=== PATIENT | female | born 1930 | race Caucasian/White ===

== ENCOUNTER → 2016-06-21 | Outpatient (CLI) | payer OTHER, MEDICARE | LOC: FIMAGING 12:15 | DX: Z12.31 Encounter for screening mammogram for malignant neoplasm of breast (principal) | CPT/HCPCS: G0202 ==

== ENCOUNTER 2016-08-05 13:13 | Emergency (ER) | payer OTHER, MEDICARE ==
[2016-08-05 13:19] VITALS: RESP 18; O2SAT 95
--- NOTE | 2016-08-05 13:36 | EDPHY ---
HPI/HX/ROS/PE/MDM Narrative: CHIEF COMPLAINT: Right shoulder injury following fall HPI: This patient is an 85 y/o female complaining of right shoulder pain following a mechanical fall this afternoon. She is currently recovering from a hip replacement with Dr. Saab one month ago and tripped while walking with hiking poles on [facility]. She describes a clear trip and fall. She denies preceding dizziness, weakness, chest pain, shortness of breath, palpitations, or other associated symptoms. She reports striking her head but denies loss of consciousness, headache, midline neck or back pain, weakness, or paresthesias. She has a history of osteoarthritis with chronic joint pain. She denies anticoagulant use. REVIEW OF SYSTEMS: Aside from elements discussed in the HPI, a comprehensive 10- point review of systems was reviewed and is negative. PMH: Hypothyroidism, Hypertension, Osteopenia, L bundle branch block, scoliosis , hip replacement by Dr Saab Past medical records reviewed including admission 03/26/14 and prior ED visits. SOCIAL HISTORY: No tobacco use, minimal alcohol consumption, originally from the [place]. PHYSICAL EXAM: General:Patient is alert, in no acute distress. Head: 1cm laceration to right lateral head. ENT:Eyes are normal to inspection. Neck: Normal inspection. Full range of motion. Respiratory:No respiratory distress. Breath sounds normal bilaterally. Cardiovascular: Regular rate and rhythm. Strong peripheral pulses. Normal cap refill. Abdomen:The abdomen is nontender to palpation. There are no peritoneal signs. Back: Normal to inspection. No tenderness to palpation. Skin: Normal color. No rash. Warm and dry. Extremities: Tenderness to right proximal humerus. Range of motion limited by pain. Other extremities normal in appearance with baseline range of motion. Neuro: Oriented x3. Normal motor function. Normal sensory function. ED Course: This patient is an 85 y/o female present today with right shoulder pain following a mechanical fall earlier today. She has tenderness to her right proximal humerus. She is neurovascularly intact. Humeral x-ray shows slightly displaced proximal humerus fracture. I discussed these results with the patient. I recommended follow up with orthopedist in one week. She adamantly refused to see Dr. Saab again and requested a shoulder specialist. We have referred her to Dr. Goncalves. She will be discharged in a sling with a prescription for Hydrocodone. Specific return precautions discussed. She is comfortable with this plan. General Time Seen by Provider: 08/05/16 13:28 Initial Vital Signs: Initial Vital Signs Temperature (C) 36.7 C 08/05/16 13:16 Heart Rate 79 08/05/16 13:16 Respiratory Rate 18 08/05/16 13:16 Blood Pressure 179/71 H 08/05/16 13:16 O2 Sat (%) 95 08/05/16 13:16 O2 Delivery Mode Room Air Allergies/Adverse Reactions: No Known Allergies Allergy (Verified 08/05/16 13:19) Home Medications: Medication Instructions Recorded Cholecalciferol (Vitamin D3) 2,000 unit PO DAILY 03/26/14 [Vitamin D3] Herbals/Supplements -Info Only 1 ea PO DAILY 03/26/14 Levothyroxine [Synthroid 137 mcg 137 mcg PO DAILY06 03/26/14 (*)] [place]-3 Fatty Acids/Fish Oil 1 each PO DAILY 03/26/14 [[place] 3 1,000 mg Softgel] Valsartan [Diovan (*)] 80 mg PO DAILY@1800 03/26/14 Valsartan/Hctz [Diovan Hct 80/12.5 1 each PO DAILY 03/26/14 mg (*)] Acetaminophen [Tylenol 325mg (*)] 650 mg PO Q6HRS #0 tab 03/31/16 Aspirin [Aspirin 325 mg (*)] 325 mg PO DAILY #0 tab 03/31/16 Sennosides/Docusate Sodium 1 - 2 tab PO BID #0 tab 03/31/16 [Senokot-S] celeCOXIB [Celebrex (*)] 200 mg PO DAILY #20 cap 03/31/16 oxyCODONE IR [Oxycodone Ir (*)] 5 - 10 mg PO Q3HRS PRN #30 tab 03/31/16 Hydrocodone/APAP 5/325 [Bent 1 - 2 tab PO Q4H PRN #20 tab 08/05/16 5/325 (RX)] Departure - Departure Disposition: Home, Routine, Self-Care Clinical Impression: Proximal humeral fracture Qualifiers: Encounter type: initial encounter Fracture type: closed Fracture morphology: other fracture Fracture alignment: displaced Laterality: right Qualified Code(s) : S42.291A - Other displaced fracture of upper end of right humerus, initial encounter for closed fracture Condition: Good Instructions: Hydrocodone/Acetaminophen (By mouth), Arm Fracture in Adults (ED) , Proximal Humerus Fracture (ED) Additional Instructions: 1. Take Aleve or ibuprofen as directed on the packaging. 2. Take hydrocodone as prescribed for pain not controlled by ibuprofen or Aleve. 3. Follow up with cleaning specialist this week. We have referred you to Dr. Goncalves, who is a shoulder specialist. 4. Wear sling for comfort until follow-up with Dr. Goncalves. 5. You can try applying ice to sore areas if it gives you some relief. 6. Return to the ED for weakness or numbness in your arm and fingers, increased swelling or redness, or other worsening of condition. Referrals: Juan Alicea [Primary Care Provider] - As per Instructions Bhargav Goncalves MD [Medical Doctor] - As per Instructions Prescriptions: Hydrocodone/APAP 5/325 [Bent 5/325 (RX)] 1 - 2 tab PO Q4H PRN #20 tab PRN Reason: Pain, Moderate Report Scribed for: Antione Chow Report Scribed by: Ya Villeda Date of Report: 08/05/16 Time of Report: 13:36 Physician Review and Approval Statement: Portions of this note were transcribed by an ED scribe. I personally performed the history, physical exam, and medical decision making; and confirm the accuracy of the information in the transcribed note.
[2016-08-05 14:52] VITALS: BP 151/78; PULSE 87; TEMP 98.2
== END 2016-08-05 14:52 | disposition home or self-care (01) ==
DX: S42.291A Other displaced fracture of upper end of right humerus, initial encounter for closed fracture (principal); I10 Essential (primary) hypertension; Z79.82 Long term (current) use of aspirin; W18.39XA Other fall on same level, initial encounter
CPT/HCPCS: 73030; 99283; A4565

== ENCOUNTER 2016-08-06 03:33 | Observation (INO) | payer OTHER, MEDICARE ==
--- NOTE | 2016-08-06 03:57 | EDPHY ---
H & P Time Seen by Provider: 08/06/16 03:49 HPI/ROS: Chief Complaint: Right arm pain HPI: A 85-year-old woman who sustained a mechanical trip and fall yesterday afternoon sustaining a fracture to her proximal right humerus. Patient was sent home with oral hydrocodone and in a sling. Patient states that she is unable to adequately control her pain at home. She last took hydrocodone at 12: 30 p.m. this morning. She is worried about taking more than 1 at a time because she is afraid it will interact with her pacemaker. She also stating that she feels very anxious. She does not feel that she is able to go home. The sling was uncomfortable and she removed it. Denies any fevers or chills. No chest pain or shortness of breath. No nausea or vomiting. ROS: 10 point Review of Systems is negative except as noted in the HPI. PMH: Hypertension, osteopenia, left bundle-branch block, scoliosis, hip replacement, pacemaker placement Social History: No smoking, occasional alcohol, no recreational drug use Family History: non-contributory Physical Exam: Gen: Awake, Alert, uncomfortable appearing HEENT: Nose: no rhinorrhea Eyes: PERRLA, EOMI Mouth: Moist mucosa Neck: Supple, no JVD Chest: nontender, lungs clear to auscultation Heart: S1, S2 normal, no murmur Abd: Soft, non-tender, no guarding Back: no CVA tenderness, no midline tenderness Ext: no edema, proximal right arm tenderness and deformity consistent with proximal humerus fracture. Is not in a sling. There is significant ecchymosis. Is held in abduction. 2+ radial pulses. Cap refills less than 3 seconds. Skin: no rash Neuro: CN II-XII intact, Sensation grossly intact, Strength 5/5 in bilateral upper and lower extremities - Personal History Tetanus Vaccine Date: 10 years ago - Medical/Surgical History Hx Asthma: No Hx Chronic Respiratory Disease: No Hx Diabetes: No Hx Cardiac Disease: No Hx Renal Disease: No Hx Cirrhosis: No Hx Alcoholism: No Hx HIV/AIDS: No Hx Splenectomy or Spleen Trauma: No Other PMH: HTN, PARTIAL THYROIDECTOMY, CHOLECYSTECTOMY, ARTHRITIS, FUSION L4, L5 , PACEMAKER - Social History Smoking Status: Never smoked Constitutional: Initial Vital Signs Temperature (C) 36.6 C 08/06/16 03:56 Heart Rate 82 08/06/16 03:56 Respiratory Rate 16 08/06/16 03:56 Blood Pressure 161/63 H 08/06/16 03:56 O2 Sat (%) 92 08/06/16 03:56 O2 Delivery Mode Room Air O2 (L/minute) 2 Allergies/Adverse Reactions: No Known Allergies Allergy (Verified 08/06/16 03:55) Home Medications: Medication Instructions Recorded Herbals/Supplements -Info Only 1 ea PO DAILY 03/26/14 Levothyroxine [Synthroid 137 mcg 137 mcg PO DAILY06 03/26/14 (*)] [place]-3 Fatty Acids/Fish Oil 1 each PO BID 03/26/14 [[place] 3 1,000 mg Softgel] Valsartan [Diovan (*)] 80 mg PO DAILY@1800 03/26/14 Valsartan/Hctz [Diovan Hct 80/12.5 1 each PO DAILY 03/26/14 mg (*)] Acetaminophen [Tylenol 325mg (*)] 650 mg PO Q6HRS #0 tab 03/31/16 Hydrocodone/APAP 5/325 [[place] 1 - 2 tab PO Q4H PRN #20 tab 08/05/16 5/325 (RX)] Aspirin [Aspirin 81mg (*)] 81 mg PO DAILY 08/06/16 Naproxen Sodium [Aleve 220 MG (*)] 220 mg PO BID 08/06/16 Medical Decision Making ED Course/Re-evaluation: Patient presenting with proximal right humerus fracture. She is having her pain is adequately controlled with oral hydrocodone at home. She is afraid to take any more than this because it she is afraid it caused her to have a heart attack. I have tried to reassure her that there should be no problems with taking more pain medicine however she is afraid to do so. She has also been taking her arm out of the sling because it is uncomfortable. She has gotten 4 mg of morphine here with some minimal relief but is still afraid to go home. I will discuss with hospitalist regarding admission. - Data Points Medications Given: Discontinued Medications Sodium Chloride (Ns) 500 mls @ 3,000 mls/hr IV ONCE ONE Stop: 08/06/16 05:05 Last Admin: 08/06/16 05:12 Dose: 500 mls Morphine Sulfate (Morphine) 4 mg IVP ONCE ONE Stop: 08/06/16 03:57 Last Admin: 08/06/16 04:10 Dose: 4 mg Departure - Departure Disposition: [facility] In[facility] Acute Clinical Impression: Humerus fracture Condition: Fair
[2016-08-06] MEDS ORDERED: NS 500 ML IV ONE (04:56)
[2016-08-06 05:03] LABS: % IMMATURE GRANULYOCYTES 0.4 % (0.0-1.1); ABSOLUTE IMMATURE GRANULOCYTES 0.03 10^3/uL (0.00-0.10); ADD DIFF? NO; ADD MORPH? NO; ADD SCAN? NO; ATYPICAL LYMPHOCYTE FLAG 0 (0-99); FRAGMENT RBC FLAG 0 (0-99); HEMATOCRIT 32.9 % (38.0-47.0); HEMOGLOBIN 11.2 g/dL (12.6-16.3); LEFT SHIFT FLG 0 (0-99); LIPEMIA HEMOLYSIS FLAG 90 (0-99); MEAN CELL HEMOGLOBIN 31.9 pg (27.9-34.1); MEAN CELL VOLUME 93.7 fL (81.5-99.8); MEAN PLATELET VOLUME 11.1 fL (8.7-11.7); PLATELET CLUMPS FLAG 0 (0-99); PLATELET COUNT 185 10^3/uL (150-400); RED BLOOD CELL COUNT 3.51 10^6/uL (4.18-5.33); RED CELL DISTRIBUTION WIDTH 13.4 % (11.5-15.2)
[2016-08-06 05:11] LABS: ANION GAP 5 mEq/L (8-16); CALCIUM 8.7 mg/dL (8.5-10.4); CARBON DIOXIDE 25 mEq/l (22-31); CHLORIDE 96 mEq/L (97-110); CREATININE 0.9 mg/dL (0.6-1.0); GLOMERULAR FILTRATION RATE 59; GLUCOSE 114 mg/dL (70-100); POTASSIUM 3.8 mEq/L (3.5-5.2); SODIUM 126 mEq/L (134-144)
[2016-08-06] MEDS ORDERED: ONDANSETRON DISINTEGRATING 4 MG TAB PO PRN (05:21)
[2016-08-06] MEDS ORDERED: oxyCODONE IR 5 MG TAB PO PRN (05:21)
[2016-08-06] MEDS ORDERED: ACETAMINOPHEN 500 MG TAB PO PRN (05:21)
[2016-08-06] MEDS ORDERED: ONDANSETRON 4 MG/2 ML VIAL IVP PRN (05:21)
[2016-08-06] MEDS ORDERED: NS 1,000 ML IV SCH (05:30)
--- NOTE | 2016-08-06 05:31 | PDGENHP ---
History and Physical - Chief Complaint arm pain - History of Present Illness Patient is an 85 year old female with HTN, hypothyroidism, osteoarthritis, PPM who presents to the ED with increased R arm pain at the site of R humeral fracture. Patient was seen in the ED yesterday after a mechanical fall where she reports tripping on an uneven sidewalk, falling and landing on her R arm. She also reports grazing her R forehead on the sidewalk, denies loss of consciousness, remembers the entire event. She also denies any lightheadedness, chest pain, palpitations or shortness of breath associated with the fall. She immediately had intense pain to the R upper arm, so she was taken to the ED for further evaluation. X-ray revealed a nondisplaced R humeral head and greater tuberosity fracture. She was placed in a sling, given a prescription for Nimitz and discharged home. Patient had only taken the Nimitz that was given to her in the ED, stating she was afraid to take any at home due to fear/anxiety of oversedation, as she lives alone. The pain intensified throughout the day, she was unable to perform simple tasks around her home and felt the sling was uncomfortable so she removed it. She returned to the ED this evening with intense pain in her. She denies any recent fevers, chills, cough, congestion, nausea, vomiting or diarrhea, but does report generally decreased oral intake recently. On arrival to the ED, she was afebrile and hemodynamically stable, although in moderate amount of pain. She was given symptomatic treatment and was then admitted for further pain management. History Information - Allergies/Home Medication List Allergies/Adverse Reactions: No Known Allergies Allergy (Verified 08/06/16 03:55) Home Medications: Cholecalciferol (Vitamin D3) [Vitamin D3] 2,000 unit PO DAILY 03/26/14 [Last Taken 03/26/14 09:00] Herbals/Supplements -Info Only 1 ea PO DAILY 03/26/14 [Last Taken 2 Weeks Ago] Levothyroxine [Synthroid 137 mcg (*)] 137 mcg PO DAILY06 03/26/14 [Last Taken ] [place]-3 Fatty Acids/Fish Oil [[place] 3 1,000 mg Softgel] 1 each PO DAILY [Last Taken 1 Week Ago] Valsartan [Diovan (*)] 80 mg PO DAILY@1800 03/26/14 [Last Taken 03/30/16] Valsartan/Hctz [Diovan Hct 80/12.5 mg (*)] 1 each PO DAILY 03/26/14 [Last Taken 03/30/16] I have personally reviewed and updated: family history, medical history, social history, surgical history - Past Medical History Additional medical history: hypothyroidism. hypertension. PPM for symptomatic bradycardia. osteoarthritis - Surgical History Additional surgical history: L hip arthroplasty 03/2016 - Social History Smoking Status: Never smoked Alcohol Use: None Drug Use: None Additional social history: Patient lives alone, independent in ADLs, has children living nearby. [place], has been living in [place] since young adulthood. Review of Systems ROS: 10pt was reviewed & negative except for what was stated in HPI & below Physical Exam Temp Pulse Resp BP Pulse Ox 36.8 C 67 16 107/56 L 97 08/06/16 05:13 08/06/16 05:13 08/06/16 05:13 08/06/16 05:13 08/06/16 05:13 O2 (L/minute) 2 Constitutional: no apparent distress, appears nourished, not in pain Eyes: PERRL, anicteric sclera, EOMI Ears, Nose, Mouth, Throat: moist mucous membranes, hearing normal, ears appear normal, no oral mucosal ulcers Cardiovascular: regular rate and rhythym, no murmur, rub, or gallop, pulses symmetric bilaterally, No JVD, No edema Peripheral Pulses: 2+: dorsalis-pedis (R), dorsalis-pedis (L) Respiratory: no respiratory distress, no rales or rhonchi, clear to auscultation Gastrointestinal: normoactive bowel sounds, soft, non-tender abdomen, no palpable masses Genitourinary: no bladder fullness, no bladder tenderness Skin: warm, normal color, no fluctuance, no induration, abrasion (abrasion on R lateral orbit, mildly tender), No mottled Musculoskeletal: pain with ROM (of RUE; neurovascularly intact) Neurologic: AAOx3, sensation intact bilaterally, CN II-XII Intact, No weakness, No numbness, No facial droop Psychiatric: interacting appropriately, not anxious, not encephalopathic, thought process linear Lab Data & Imaging Review 08/06/16 04:50 08/06/16 04:50 WBC 7.93 10^3/uL (3.80-9.50) 08/06/16 04:50 RBC 3.51 10^6/uL (4.18-5.33) L 08/06/16 04:50 Hgb 11.2 g/dL (12.6-16.3) L 08/06/16 04:50 Hct 32.9 % (38.0-47.0) L 08/06/16 04:50 MCV 93.7 fL (81.5-99.8) 08/06/16 04:50 MCH 31.9 pg (27.9-34.1) 08/06/16 04:50 MCHC 34.0 g/dL (32.4-36.7) 08/06/16 04:50 RDW 13.4 % (11.5-15.2) 08/06/16 04:50 Plt Count 185 10^3/uL (150-400) 08/06/16 04:50 MPV 11.1 fL (8.7-11.7) 08/06/16 04:50 Neut % (Auto) 75.1 % (39.3-74.2) H 08/06/16 04:50 Lymph % (Auto) 15.0 % (15.0-45.0) 08/06/16 04:50 [place] % (Auto) 7.8 % (4.5-13.0) 08/06/16 04:50 Eos % (Auto) 1.3 % (0.6-7.6) 08/06/16 04:50 Baso % (Auto) 0.4 % (0.3-1.7) 08/06/16 04:50 Nucleat RBC Rel Count 0.0 % (0.0-0.2) 08/06/16 04:50 Absolute Neuts (auto) 5.96 10^3/uL (1.70-6.50) 08/06/16 04:50 Absolute Lymphs (auto) 1.19 10^3/uL (1.00-3.00) 08/06/16 04:50 Absolute Monos (auto) 0.62 10^3/uL (0.30-0.80) 08/06/16 04:50 Absolute Eos (auto) 0.10 10^3/uL (0.03-0.40) 08/06/16 04:50 Absolute Basos (auto) 0.03 10^3/uL (0.02-0.10) 08/06/16 04:50 Absolute Nucleated RBC 0.00 10^3/uL (0-0.01) 08/06/16 04:50 Immature Gran % 0.4 % (0.0-1.1) 08/06/16 04:50 Immature Gran # 0.03 10^3/uL (0.00-0.10) 08/06/16 04:50 Sodium 126 mEq/L (134-144) L 08/06/16 04:50 Potassium 3.8 mEq/L (3.5-5.2) 08/06/16 04:50 Chloride 96 mEq/L (97-110) L 08/06/16 04:50 Carbon Dioxide 25 mEq/l (22-31) 08/06/16 04:50 Anion Gap 5 mEq/L (8-16) L 08/06/16 04:50 BUN 20 mg/dL (7-23) 08/06/16 04:50 Creatinine 0.9 mg/dL (0.6-1.0) 08/06/16 04:50 Estimated GFR 59 08/06/16 04:50 Glucose 114 mg/dL (70-100) H 08/06/16 04:50 Calcium 8.7 mg/dL (8.5-10.4) 08/06/16 04:50 Visualized and Interpreted imaging results: Yes Interpretation: R shoulder x-ray: nondisplaced R humeral head and greater trochanger fracture Assessment & Plan Assessment: Patient is an 85 year old female with hypertension, hypothyroidism, osteoarthritis and PPM who presented to the ED after a mechanical fall that resulted in R humeral head fracture. Plan: # acute R humeral head fracture Patient returns to the ED with significant pain at the site of her acute fracture, limiting her ability to perform her ADLs at home. No indication for repeat imaging, arm was placed back into the sling and patient was admitted for adequate pain control. # fall Patient's description of the fall sounds to be mechanical in nature. However, labs due reveal hyponatremia, which may have contributed to her falling. Will also check UA. Will correct electrolyte abnormalities and obtain PT/OT evaluation. # hyponatremia Suspect hypovolemia, as patient describes a recent decrease in appetite. Will provide IV fluid hydration and repeat studies. # Hypothyroidism Check TSH, cont home synthroid. # hypertension BP stable on presentation. Will confirm and continue home meds. # dispo: admit to observation status for pain control # gen: regular diet DVT ppx: lovenox Full code
[2016-08-06] MEDS: ENOXAPARIN 40 MG/0.4 ML SYR SC SCH (08:12)
[2016-08-06 08:45] LABS: COLOR YELLOW; LEUKOCYTE ESTERASE,URINE NEGATIVE (NEGATIVE); NITRITE,URINE NEGATIVE (NEGATIVE)
--- NOTE | 2016-08-06 09:09 | CPEKG ---
Heart Rate: 74 RR Interval: 811 P-R Interval: 236 QRSD Interval: 142 QT Interval: 444 QTC Interval: 493 QRS [place]: -38 T Wave [place]: 139 EKG Severity - ABNORMAL ECG - EKG Impression: ATRIAL-PACED RHYTHM EKG Impression: LEFT BUNDLE BRANCH BLOCK Electronically Signed By: Silvio Vieira 07-Aug-2016 06:37:40
[2016-08-06] MEDS: NAPROXEN SODIUM 220 MG TAB PO SCH ×2 (10:33→20:13)
[2016-08-06] MEDS: LEVOTHYROXINE 137 MCG TAB PO SCH (10:34)
[2016-08-06] MEDS: VALSARTAN/HCTZ 80-12.5MG TAB PO SCH (10:34)
[2016-08-06] MEDS: HYDROCODONE/APAP 5/325 TAB PO PRN ×3 (11:22→20:12)
[2016-08-06] MEDS: ACETAMINOPHEN 325 MG TAB PO SCH ×2 (11:42→18:06)
--- NOTE | 2016-08-06 13:09 | PDCONSULT ---
Cell Inspector Note: Orthopedic Consult Note for [facility], Dr. Camron Andujar and Alex Elkins PA-C Sophia is a pleasant 85 yo female, patient states 08/05/16 she was walking [place] [address] as she has been since her recent hip surgery to keep in shape, and thinks she may have tripped over her left foot as she feels she drags this foot more than her right due to scoliosis hx. patient reports she fell forward onto her right arm and grazed her head and had immediate onset of pain in her right upper arm. Patient states she did not lose consiousness, and remembers everything. Patient went to the ED where she was found to have a non-displaced right humerus fracture, patient was placed in a sling and given pain meds and discharged home. However, patient reports that over the rest of the day she in increasing pain and unable to do her ADL's and didn't want to take pain meds as she worried about over sedating her self, so patient represented to ED and was subsequently admitted. Patient reports pain has been under control since being admitted, denies any numbness/tingling in right arm. Denies any fevers/chills, denies n/v/d/c. Denies cp/sob. MEDs Cholecalciferol (Vitamin D3) [Vitamin D3] 2,000 unit PO DAILY 03/26/14 [Last Taken 03/26/14 09:00] Herbals/Supplements -Info Only 1 ea PO DAILY 03/26/14 [Last Taken 2 Weeks Ago] Levothyroxine [Synthroid 137 mcg (*)] 137 mcg PO DAILY06 03/26/14 [Last Taken ] [place]-3 Fatty Acids/Fish Oil [[place] 3 1,000 mg Softgel] 1 each PO DAILY [Last Taken 1 Week Ago] Valsartan [Diovan (*)] 80 mg PO DAILY@1800 03/26/14 [Last Taken 03/30/16] Valsartan/Hctz [Diovan Hct 80/12.5 mg (*)] 1 each PO DAILY 03/26/14 [Last Taken 03/30/16] PMH: hypothyroidism, hypertension, PPM for symptomatic bradycardia, osteoarthritis, PSH: pacemaker implantment, l4-l5 fusion, left hip arthroplasty, cholesestectomy SH: smoked from [age] years of age, alcohol 1-2x/wk, marijuana use occasionally after her hip surgery. Allergies: NKDA LABS: 08/06/16 04:50 LABORATORY 08/06/16 08/06/16 08/06/16 Unknown 13:00 04:50 WBC RBC Hgb Hct MCV MCH MCHC RDW Plt Count MPV Neut % (Auto) Lymph % (Auto) [place] % (Auto) Eos % (Auto) Baso % (Auto) Nucleat RBC Rel Count Absolute Neuts (auto) Absolute Lymphs (auto) Absolute Monos (auto) Absolute Eos (auto) Absolute Basos (auto) Absolute Nucleated RBC Immature Gran % Immature Gran # Sodium Pending 126 mEq/L L mEq/L (134-144) Potassium Pending 3.8 mEq/L mEq/L (3.5-5.2) Chloride Pending 96 mEq/L L mEq/L (97-110) Carbon Dioxide Pending 25 mEq/l mEq/l (22-31) Anion Gap Pending 5 mEq/L L mEq/L (8-16) BUN Pending 20 mg/dL mg/dL (7-23) Creatinine Pending 0.9 mg/dL mg/dL (0.6-1.0) Estimated GFR Pending 59 Glucose Pending 114 mg/dL H mg/dL (70-100) Calcium Pending 8.7 mg/dL mg/dL (8.5-10.4) TSH Pending Urine Color YELLOW Urine Appearance CLEAR Urine pH 6.0 (5.0-7.5) Ur Specific [place] 1.013 (1.002-1.030) Urine Protein NEGATIVE (NEGATIVE) Urine Ketones NEGATIVE (NEGATIVE) Urine Blood NEGATIVE (NEGATIVE) Urine Nitrate NEGATIVE (NEGATIVE) Urine Bilirubin NEGATIVE (NEGATIVE) Urine Urobilinogen NEGATIVE EU EU (0.2-1.0) Ur Leukocyte Esterase NEGATIVE (NEGATIVE) Urine Glucose NEGATIVE (NEGATIVE) 08/06/16 04:50 WBC 7.93 10^3/uL 10^3/uL (3.80-9.50) RBC 3.51 10^6/uL L 10^6/uL (4.18-5.33) Hgb 11.2 g/dL L g/dL (12.6-16.3) Hct 32.9 % L % (38.0-47.0) MCV 93.7 fL fL (81.5-99.8) MCH 31.9 pg pg (27.9-34.1) MCHC 34.0 g/dL g/dL (32.4-36.7) RDW 13.4 % % (11.5-15.2) Plt Count 185 10^3/uL 10^3/uL (150-400) MPV 11.1 fL fL (8.7-11.7) Neut % (Auto) 75.1 % H % (39.3-74.2) Lymph % (Auto) 15.0 % % (15.0-45.0) [place] % (Auto) 7.8 % % (4.5-13.0) Eos % (Auto) 1.3 % % (0.6-7.6) Baso % (Auto) 0.4 % % (0.3-1.7) Nucleat RBC Rel Count 0.0 % % (0.0-0.2) Absolute Neuts (auto) 5.96 10^3/uL 10^3/uL (1.70-6.50) Absolute Lymphs (auto) 1.19 10^3/uL 10^3/uL (1.00-3.00) Absolute Monos (auto) 0.62 10^3/uL 10^3/uL (0.30-0.80) Absolute Eos (auto) 0.10 10^3/uL 10^3/uL (0.03-0.40) Absolute Basos (auto) 0.03 10^3/uL 10^3/uL (0.02-0.10) Absolute Nucleated RBC 0.00 10^3/uL 10^3/uL (0-0.01) Immature Gran % 0.4 % % (0.0-1.1) Immature Gran # 0.03 10^3/uL 10^3/uL (0.00-0.10) Sodium Potassium Chloride Carbon Dioxide Anion Gap BUN Creatinine Estimated GFR Glucose Calcium TSH Urine Color Urine Appearance Urine pH Ur Specific [place] Urine Protein Urine Ketones Urine Blood Urine Nitrate Urine Bilirubin Urine Urobilinogen Ur Leukocyte Esterase Urine Glucose PE: elderly appearing female, in no acute distress MSK: RUE: moderate ecchymosis surrounding shoulder into mid bicep, no erythema, moderately ttp throughout humeral head, nttp ACJ, nttp scapula, nvid w/ brisk cap refill, 2 point <3mm, radial/ulnar pulse 2+, full elbow rom, full wrist rom , full digital rom, no shoulder rom assessed. assessment/plan: 85 yo female w/ isolated right non-displaced proximal humerus fracture, I discussed all operative and non-operative treatment options with the patient, discussed rehab time line and r/b/a/c of all options. Patient agreed with plan for non-operative management. 1) RUE: non-operative treatment of proximal humerus fracture, sling x6 weeks, non-weight bearing, can come out of sling to do elbow/wrist/digital rom, follow up with [facility] in 2 weeks for repeat films, and appropriate pain control. 2) no other orthopedic intervention at this time. 3) thank you very much for this consultaiton. please feel free to call Martín Elkins PA-C with any questions at [facility].
[2016-08-06 13:52] LABS: ANION GAP 6 mEq/L (8-16); CALCIUM 8.5 mg/dL (8.5-10.4); CARBON DIOXIDE 23 mEq/l (22-31); CHLORIDE 97 mEq/L (97-110); CREATININE 0.8 mg/dL (0.6-1.0); GLOMERULAR FILTRATION RATE > 60; GLUCOSE 101 mg/dL (70-100); POTASSIUM 4.1 mEq/L (3.5-5.2); SODIUM 126 mEq/L (134-144)
--- NOTE | 2016-08-06 14:09 | HOSPPROG ---
Hospitalist Progress Note Assessment/Plan: Patient is an 85 year old female with hypertension, hypothyroidism, osteoarthritis and PPM who presented to the ED after a mechanical fall that resulted in R humeral head fracture. Plan: # acute R humeral head fracture Patient returns to the ED with significant pain at the site of her acute fracture, limiting her ability to perform her ADLs at home. No indication for repeat imaging, arm was placed back into the sling and patient was admitted for adequate pain control. Ortho consult. # fall Patient's description of the fall sounds to be mechanical in nature. However, labs due reveal hyponatremia, which may have contributed to her falling. Will also check UA. Will correct electrolyte abnormalities and obtain PT/OT evaluation. # hyponatremia Suspect hypovolemia, as patient describes a recent decrease in appetite. Will provide IV fluid hydration and repeat studies. # Hypothyroidism Check TSH, cont home synthroid. # hypertension BP stable on presentation. Will confirm and continue home meds. # dispo: conts to require IV pain meds. anticipate DC 1-2 days with outpatient follow up and help. # gen: regular diet DVT ppx: lovenox Full code Subjective: Still having pain. Anxious about situation. Objective: Vital Signs Temp Pulse Resp BP Pulse Ox 36.4 C 72 16 127/63 H 93 08/06/16 11:59 08/06/16 12:00 08/06/16 11:59 08/06/16 11:59 08/06/16 12:00 Laboratory Results 08/06/16 04:50 08/06/16 13:00 08/05/16 08/06/16 08/07/16 05:59 05:59 05:59 Intake Total 500 Output Total 300 Balance 500 -300 - Physical Exam Constitutional: appears nourished, uncomfortable Eyes: PERRL, anicteric sclera Ears, Nose, Mouth, Throat: moist mucous membranes, hearing normal Cardiovascular: No JVD, No edema Respiratory: no respiratory distress, reduced air movement Gastrointestinal: No tenderness, No ascites Skin: warm, no rashes or abrasions Musculoskeletal: muscular tenderness, generalized weakness Neurologic: AAOx3 Psychiatric: not encephalopathic, thought process linear, anxious ICD10 Worksheet Patient Problems: Problems Problem Status Onset Primary localized osteoarthritis of left hip Acute Humerus fracture Acute
[2016-08-06] MEDS ORDERED: VALSARTAN 80 MG TAB PO SCH (18:00)
[2016-08-06] MEDS: OMEGA-3 FATTY ACIDS 1,000 MG CAP PO SCH (20:13)
[2016-08-06] MEDS ORDERED: NON-FORMULARY NEW DRUG (Omega-3 Fatty Acids/Fish Oil [Omega 3 1,000 Mg Softgel] 1 EACH) PO SCH (21:00)
[2016-08-06] MEDS: SENNOSIDES/DOCUSATE SODIUM TAB PO SCH (21:22)
[2016-08-07] MEDS: HYDROCODONE/APAP 5/325 TAB PO PRN ×3 (00:12→12:23)
[2016-08-07] MEDS: ACETAMINOPHEN 325 MG TAB PO SCH ×3 (00:13→12:20)
[2016-08-07 05:05] LABS: ANION GAP 6 mEq/L (8-16); CALCIUM 8.5 mg/dL (8.5-10.4); CARBON DIOXIDE 24 mEq/l (22-31); CHLORIDE 98 mEq/L (97-110); CREATININE 0.8 mg/dL (0.6-1.0); GLOMERULAR FILTRATION RATE > 60; GLUCOSE 91 mg/dL (70-100); POTASSIUM 4.2 mEq/L (3.5-5.2); SODIUM 128 mEq/L (134-144)
[2016-08-07] MEDS: LEVOTHYROXINE 137 MCG TAB PO SCH (05:29)
[2016-08-07 07:14] VITALS: BP 135/53; PULSE 71; RESP 15; TEMP 97.5; O2SAT 94
--- NOTE | 2016-08-07 08:08 | CPEKG ---
Heart Rate: 63 RR Interval: 952 P-R Interval: 248 QRSD Interval: 136 QT Interval: 472 QTC Interval: 484 P [place]: 32 QRS [place]: -44 T Wave [place]: 127 EKG Severity - ABNORMAL ECG - EKG Impression: PACEMAKER SPIKES OR ARTIFACTS EKG Impression: PAIRED VENTRICULAR PREMATURE COMPLEXES EKG Impression: LEFT BUNDLE BRANCH BLOCK Electronically Signed By: Silvio Vieira 08-Aug-2016 09:10:05
[2016-08-07] MEDS: NAPROXEN SODIUM 220 MG TAB PO SCH (08:19)
[2016-08-07] MEDS: OMEGA-3 FATTY ACIDS 1,000 MG CAP PO SCH (08:19)
[2016-08-07] MEDS: SENNOSIDES/DOCUSATE SODIUM TAB PO SCH (08:19)
[2016-08-07] MEDS: VALSARTAN/HCTZ 80-12.5MG TAB PO SCH (08:19)
[2016-08-07] MEDS: ENOXAPARIN 40 MG/0.4 ML SYR SC SCH (08:19)
[2016-08-07] MEDS ORDERED: ASPIRIN 81 MG CHEWABLE TAB PO SCH (09:00)
[2016-08-07] MEDS ORDERED: Herbals/Supplements -Info Only PO SCH (09:00)
--- NOTE | 2016-08-07 09:49 | PDIAF ---
- Diagnosis Diagnosis: humerus fx Code Status: Full Code - Medication Management Discharge Medications: Medications to Continue on Transfer Herbals/Supplements -Info Only 1 ea PO DAILY 03/26/14 [Last Taken 2 Weeks Ago] Levothyroxine [Synthroid 137 mcg (*)] 137 mcg PO DAILY06 03/26/14 [Last Taken ] [place]-3 Fatty Acids/Fish Oil [[place] 3 1,000 mg Softgel] 1 each PO BID 03/26/14 [ Last Taken 08/05/16] Valsartan [Diovan (*)] 80 mg PO DAILY@1800 03/26/14 [Last Taken 08/05/16] Valsartan/Hctz [Diovan Hct 80/12.5 mg (*)] 1 each PO DAILY 03/26/14 [Last Taken 08/05/16] Acetaminophen [Tylenol 325mg (*)] 650 mg PO Q6HRS #0 tab 03/31/16 [Last Taken ] Hydrocodone/APAP 5/325 [[place] 5/325 (*)] 1 - 2 tab PO Q4H PRN #20 tab 08/05/16 [ Last Taken 08/05/16] Aspirin [Aspirin 81mg (*)] 81 mg PO DAILY 08/06/16 [Last Taken 08/05/16] Naproxen Sodium [Aleve 220 MG (*)] 220 mg PO BID 08/06/16 [Last Taken 08/05/16] Sennosides/Docusate Sodium [Senokot-S] 1 tab PO BID tab 08/07/16 [Last Taken Unknown] Discharge Medications: Refer to the Discharge Home Medication list for PRN reason. PICC Care - Routine: N/A - Orders Services needed: Physical Therapy, Occupational Therapy - Follow Up Care Current Providers and Referrals: Patient,NotPresent [Unknown] - As per Instructions Louis Doherty MD [Medical Doctor] -
--- NOTE | 2016-08-07 11:15 | GDS ---
[f rep st] DISCHARGE SUMMARY DISCHARGE DIAGNOSES: 1. Right humeral head fracture. 2. Mechanical fall. 3. Hyponatremia. 4. Hypothyroidism. 5. Hypertension. 6. Pain crisis. CONSULTATIONS: Orthopedics. PHYSICAL EXAM: GENERAL: The patient is alert. VITAL SIGNS: Afebrile at 36.4, pulse is 71, respir atory rate 15, blood pressure is 135/53. She is saturating 94% on room air. I have seen and evaluated the patient on the day of discharge. HOSPITAL COURSE: Ms. Pike is an 85-year-old female, who presented to the emergency room after be ing sent home and diagnosed with a humeral fracture secondary to intolerable pain. She was evaluate d and diagnosed with: 1. Pain crisis. During this hospitalization, she required IV pain medication. She has since been transitioned to oral pain medication and received education with regard to administering her [place] p roperly. She feels comfortable and safe to be discharged home from a pain standpoint. 2. Acute right humeral head fracture. Orthopedics was consulted with no intervention warranted at this time. She will continue sling usage and follow up with Dr. Doherty in the outpatient setting in 2 weeks. 3. Mechanical fall. She has been evaluated by Physical Therapy as well as Occupational Therapy and will continue home health care in the outpatient setting. 4. Hyponatremia. This is stable with no adverse side effects. She will follow with her primary ca re physician to have laboratory evaluations rechecked in 2 weeks. 5. History of hypothyroidism. This is stable. 6. Hypertension. Her blood pressure is well managed on her antihypertensive medications and have b een continued. DISPOSITION: The patient will be discharged home with home health care and extra assistance at home provided by her family. There are no pending studies. DISCHARGE MEDICATIONS: Please refer to EMR form. I have not provided the patient any prescriptions at the time of disposition. Follow up will be with her primary care physician, as well as Dr. Ivett avelar in 2 weeks. /[id number]/MODL
== END 2016-08-07 12:48 | disposition home health service (06) ==
LOC: EDUNIT# → INTOOBSV 04:45 → F3N 05:28
PROVIDERS: ADMIT Internal Medicine; ATTEND Internal Medicine
DX: G89.11 Acute pain due to trauma (principal); S42.251D Displaced fracture of greater tuberosity of right humerus, subsequent encounter for fracture with routine healing; W01.198D Fall on same level from slipping, tripping and stumbling with subsequent striking against other object, subsequent encounter; R41.841 Cognitive communication deficit; E87.1 Hypo-osmolality and hyponatremia; E03.9 Hypothyroidism, unspecified; I10 Essential (primary) hypertension; Z95.0 Presence of cardiac pacemaker; Z98.1 Arthrodesis status
CPT/HCPCS: 92523; 93005; 96374; 97161; 97165; 97530; 97535; 99285; A4565; G0378; G8978; G8979; G8980; G8987; G8988; G8989; G9168; G9169; J1650

== ENCOUNTER 2018-03-01 10:40 | Emergency (ER) | payer OTHER, MEDICARE ==
[2018-03-01 10:48] VITALS: BP 188/92
--- NOTE | 2018-03-01 11:05 | EDPHY ---
General Time Seen by Provider: 03/01/18 10:57 Narrative: CHIEF COMPLAINT: Fall, shoulder pain HISTORY OF PRESENT ILLNESS: Patient presents by private vehicle with complaints of fall and left shoulder pain. She states she was walking today when she tripped and fell, landing on her left shoulder. This happened just prior to arrival. No head strike or loss of consciousness. Her only complaint is left shoulder pain. It is very mild. She demonstrates a [id number] mild pointing to the area of pain. No headache or neck pain. No chest, back or abdominal pain. No numbness tingling weakness. The pain is worse with palpation and movement. It is minimal. She has no injury elsewhere. She is right-hand dominant. No other associated complaints or modifying factors REVIEW OF SYSTEMS: 10 systems were reviewed and negative with the exception of the elements mentioned in the history of present illness. [facility] None currently PAST MEDICAL HISTORY: Orthopedic injuries, hypertension, hypothyroid, cholecystitis, arthritis, lumbar stenosis, pacemaker PAST SURGICAL HISTORY: Orthopedic surgeries. Cholecystectomy SOCIAL HISTORY: Nonsmoker. Lives independently. Retired. FAMILY HISTORY: Noncontributory EXAMINATION: Vitals: Triage VS reviewed General Appearance: Alert, no distress. Well appearing and ambulatory. Conversing in full sentences Head: normocephalic, atraumatic. No Stiles sign or raccoon eyes. No depression deformity. Eyes: Pupils equal and round, no conjunctival pallor or injection ENT, Mouth: Mucous membranes moist Neck: Normal inspection, supple, non-tender Respiratory: Lungs are clear to auscultation Cardiovascular: Regular rate and rhythm Gastrointestinal: Abdomen is soft and nontender Back: non-tender, no bony abnormalities Neurological: Cranial nerves 2-12 grossly intact A&O, nonfocal, normal gait Skin: Warm and dry, no rash Extremities: Mild tenderness of the left shoulder over the AC joint. There is no bony tenderness of the humeral head. No tenderness of the left elbow or wrist. Range of motion upper extremities symmetric. No pain with extension of the elbows. All compartments are soft and left upper extremity. Psychiatric: Mood and affect normal DIFFERENTIAL DIAGNOSES: Including but not limited to sprain, strain, fracture, dislocation, subluxation MDM: 11:00 a.m. Mechanical fall this morning with left shoulder pain. No head injury. No signs of dislocation or distal injuries. She is neuro intact. She has no head or neck injury or pain. No abdominal, back or chest injure pain. She is well- appearing and ambulatory. X-rays pending. 11:10 a.m. X-ray as read by me, without radiologist, reveals no evidence of dislocation or acute osseous abnormality. We discussed sling, ice, elevation anti- inflammatories. We discussed follow up with primary care physician and orthopedist for definitive care. She is comfortable this plan. She is discharged home stable condition SUPERVISION: This patient was independently evaluated without direct involvement of or examination by the attending physician. CONSULTATION: None - Diagnostics Imaging Results: Imaging Impressions Shoulder X-Ray 03/01/18 10:49 Impression: Negative for fracture. - History Smoking Status: Never smoked - Objective Vital Signs: Initial Vital Signs Temperature (C) 98.1 F 03/01/18 10:45 Heart Rate 71 03/01/18 10:45 Respiratory Rate 16 03/01/18 10:45 Blood Pressure 188/92 H 03/01/18 10:45 O2 Sat (%) 97 03/01/18 10:45 O2 Delivery Mode Room Air Allergies/Adverse Reactions: No Known Allergies Allergy (Verified 08/06/16 03:55) Home Medications: Medication Instructions Recorded Herbals/Supplements -Info Only 1 ea PO DAILY 03/26/14 Levothyroxine [Synthroid 137 mcg 137 mcg PO DAILY06 03/26/14 (*)] [place]-3 Fatty Acids/Fish Oil 1 each PO BID 03/26/14 [[place] 3 1,000 mg Softgel] Valsartan [Diovan (*)] 80 mg PO DAILY@1800 03/26/14 Valsartan/Hctz [Diovan Hct 80/12.5 1 each PO DAILY 03/26/14 mg (*)] Acetaminophen [Tylenol 325mg (*)] 650 mg PO Q6HRS #0 tab 03/31/16 Hydrocodone/APAP 5/325 [[place] 1 - 2 tab PO Q4H PRN #20 tab 08/05/16 5/325 (*)] Aspirin [Aspirin 81mg (*)] 81 mg PO DAILY 08/06/16 Naproxen Sodium [Aleve 220 MG (*)] 220 mg PO BID 08/06/16 Sennosides/Docusate Sodium 1 tab PO BID tab 08/07/16 [Senokot-S] Departure - Departure Disposition: Home, Routine, Self-Care Clinical Impression: Sprain of shoulder, left Qualifiers: Encounter type: initial encounter Shoulder sprain type: unspecified sprain Qualified Code(s): S43.402A - Unspecified sprain of left shoulder joint, initial encounter Condition: Good Instructions: Shoulder Sprain (ED) Additional Instructions: 1. Medications as discussed as needed, including ibuprofen 600mg every 8 hours as needed. Do not take in conjunction with anticoagulants or other NSAIDs 2. Follow up with Orthopedics for definitive care 3. Rest, ice and elevation often. 4. ED precautions as discussed for worsening pain, redness, fever, changes in range of motion, changes in sensation Referrals: NICK SAMUEL MD [Primary Care Provider] - As per Instructions Jose Steen MD [Medical Doctor] - As per Instructions
== END 2018-03-01 11:24 | disposition home or self-care (01) ==
DX: S43.402A Unspecified sprain of left shoulder joint, initial encounter (principal); W01.198A Fall on same level from slipping, tripping and stumbling with subsequent striking against other object, initial encounter
CPT/HCPCS: 73030; 99283; A4565

== ENCOUNTER → 2018-04-24 | Outpatient (CLI) | payer OTHER, MEDICARE | LOC: FIMAGING 09:05 | PROVIDERS: ATTEND Anesthesiology Pain Medicine | DX: Z95.0 Presence of cardiac pacemaker (principal); S46.012A Strain of muscle(s) and tendon(s) of the rotator cuff of left shoulder, initial encounter; M75.92 Shoulder lesion, unspecified, left shoulder; S46.212A Strain of muscle, fascia and tendon of other parts of biceps, left arm, initial encounter; M25.412 Effusion, left shoulder ==

== ENCOUNTER → 2018-08-06 | Outpatient (CLI) | payer OTHER, MEDICARE | LOC: FIMAGING 11:37 | PROVIDERS: ATTEND Internal Medicine Geriatric Medicine | DX: Z13.820 Encounter for screening for osteoporosis (principal); M85.89 Other specified disorders of bone density and structure, multiple sites; E07.9 Disorder of thyroid, unspecified; Z78.0 Asymptomatic menopausal state ==